=== PATIENT | male | born 1970 ===

== ENCOUNTER 2017-11-24 17:47 | Inpatient (IN) | payer OTHER ==
[~2017-11-24] VITALS: Ht 185.4 cm; Wt 89.8 kg
[~2017-11-24 17:47] MED LIST: AMOX1TAB5 PO; INTESTINEX1 CAP PO; TAMS0.4C PO; TRAMADOL HCL-AP1 TAB PO; [UNRECOGNIZED DRUG - OTHER]
[2017-11-27] MEDS ORDERED: OXYC1TAB9 PO (12:21)
[2017-11-27] MEDS ORDERED: INTESTINEX680 M1 PO (12:21)
[2017-11-27] MEDS ORDERED: PANTOPRAZOLE SO40 MG PO (12:21)
[2017-11-27] MEDS ORDERED: TAMS0.4C PO (12:21)
== END 2017-11-27 13:36 | disposition home or self-care (01) | DRG 347 ==
LOC: SURG 17:47 → SURH 17:47 → SURG 18:05 → SURH 18:05 → LDR 11-25 01:00 → SURH 11-27 13:36 → SURG 11-27 13:36
PROVIDERS: Surgery
PROC: 0D8R0ZZ Division of Anal Sphincter, Open Approach (ICD-10-PCS; 2017-11-25)
PROC: 3E0F7GC Introduction of Other Therapeutic Substance into Respiratory Tract, Via Natural or Artificial Opening (ICD-10-PCS; 2017-11-25)
PROC: 30233K1 Transfusion of Nonautologous Frozen Plasma into Peripheral Vein, Percutaneous Approach (ICD-10-PCS; 2017-11-25)
PROC: 5A09357 Assistance with Respiratory Ventilation, Less than 24 Consecutive Hours, Continuous Positive Airway Pressure (ICD-10-PCS; 2017-11-25)
PROC: 06BY0ZC Excision of Hemorrhoidal Plexus, Open Approach (ICD-10-PCS; principal; 2017-11-25 23:45)
DX: K64.3 Fourth degree hemorrhoids (principal); D66 Hereditary factor VIII deficiency; Q79.6 Ehlers-Danlos syndromes; K60.0 Acute anal fissure; G47.33 Obstructive sleep apnea (adult) (pediatric); J45.20 Mild intermittent asthma, uncomplicated; E56.1 Deficiency of vitamin K; D50.8 Other iron deficiency anemias; R33.8 Other retention of urine